=== PATIENT | female | born 1970 | race Caucasian/White ===

== ENCOUNTER 2020-04-19 10:28 | Emergency (ER) | payer OTHER ==
[~2020-04-19] VITALS: Ht 177.8 cm; Wt 72.6 kg
--- NOTE | ~2020-04-19 | EMS ---
[address] [address] EMS Patient Care Report Name: [facility]UD[facility] CHO [id number] Admission: 04/19/20 Attend Phys: Discharge: 04/19/20 Date of : 68 Report #: [id number] THIS REPORT FOR: //name// Report Transmitted: 04/19/2020 15:46 EMS Care Summary [facility] Incident 20-1056 @ 04/19/2020 09:52 Incident Location [address] [place] [address] Patient RUDY CHO Female, 49 Years 1970 Patient Address [address] [place] [address] Patient History Stroke/CVA,Alcohol Abuse, Patient Allergies Sulfa, Chief Complaint seizure Disposition Transported No Lights/Parks Dispatch Reason Stroke/CVA Transported To [place] Narrative Dispatched to a residence for 49y/o female poss. stroke. Upon arrival pt. was alert but confused. Pt. has history of stroke and alcohol abuse. 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 Pt. stated that her "eyes were twitching" and she had a headache, then doesn't remember anything until EMS arrival. Pt. family states that pt. told him "I don't feel right" then fell back onto the bed and had what appeared to be seizure activity. No trauma was suspected. Pt. was moved to the [facility] [address] EMS Patient Care Report Name: RUDY CHO Room: [facility].#: [id number] Admission: 04/19/20 Attend Phys: Discharge: 04/19/20 Date of : 68 Report #: [id number] ambulance for further assessment. CPHSS was negative. BP was high with all other VS stable. Pt. quickly became alert and oriented. Pt. stated that she has been trying to quit drinking alcohol on her own and "only had 1 fifth" yesterday with no alcohol today. Pt. stated she may be having withdrawals. Options for IV access were poor and was deferred to ED. Pt. was transported to [place] for emergency services due to it being the closest facility. Initial Vitals @10:01MI Suspected: false @10:00P: 96,R: 20,BP: 208/130,Pain: 0/10,GCS: 14,Glucose: 187,SpO2: 95,Revised Trauma: 12, @10:10P: 99,R: 20,BP: 203/132,GCS: 15,SpO2: 95,Revised Trauma: 12, @10:20P: 98,R: 20,BP: 190/121,GCS: 15,SpO2: 94,Revised Trauma: 12, Assessments @09:55MENTAL:No Abnormalities,SKIN:Jaundiced,HEENT:Head/Face: No Abnormalities,Eyes: No Abnormalities,Neck/Airway: No Abnormalities,LUNG SOUNDS:General: No Abnormalities,Left Upper: No Abnormalities,Right Upper: No Abnormalities,Left Lower: No Abnormalities,Right Lower: No Abnormalities,ABDOMEN:General: No Abnormalities,Left Upper: No Abnormalities,Right Upper: No Abnormalities,Left Lower: No Abnormalities,Right Lower: No Abnormalities,PELVIS//GI:No Abnormalities,EXTREMITIES:Right Arm: Other,Left Arm: Other,Left Leg: No Abnormalities,Right Leg: No Abnormalities,PULSE:NEURO:Other, Impression Seizures Procedures @10:0112-Lead ECGResponse: UnchangedSucceeded Timeline 09:49,Call Received 09:52,Dispatched 09:52,En Route 09:53,Initial Responder On Scene 09:53,On Scene 09:55,At Patient 10:00,BP: 208/130 M,PULSE: 96,RR: 20 R,SPO2: 95 Ox,ETCO2: ,B,PAIN: 0,GCS: 14, 10:01,12-Lead ECG,Response: UnchangedSucceeded, 10:01,BP: / M,PULSE: ,RR: R,SPO2: Ox,ETCO2: ,BG: ,PAIN: ,GCS: , 10:03,Depart Scene 10:10,BP: 203/132 M,PULSE: 99,RR: 20 R,SPO2: 95 Ox,ETCO2: ,BG: ,PAIN: ,GCS: 15, 10:20,BP: 190/121 M,PULSE: 98,RR: 20 R,SPO2: 94 Ox,ETCO2: ,BG: ,PAIN: ,GCS: 15, 10:25,[place] [address] EMS Patient Care Report Name: RUDY CHO [facility] [id number] Admission: 04/19/20 Attend Phys: Discharge: 04/19/20 Date of : 68 Report #: [id number] 10:30,Transfer Patient 11:04,Call Closed Disclaimer [email or web address] Copyright 2020 [employer] This EMS Care Summary contains data elements from the applicable legal record (which may be displayed differently). It is designed to provide pertinent information for the following purposes: continuity of care, clinical quality, and state data reporting. The complete legal record is available to ED staff and administrators of the receiving hospital in [employer] Patient Tracker. All data is provided "as is."
[~2020-04-19 10:28] MED LIST: ACETAMINOPHEN-1 EAC1 PO; AMOXICILLIN 50500 MG PO; AUGMENTIN 500-1 EACH PO; CLOTRIMAZOLE AF30 GM TP; DIFLUCAN150 M1 PO; DOXYCYCLINE 10100 MG PO; FLEXERIL PO; HYDROCODON-ACE1 EAC7 PO; HYDROCODONE-AP1 EAC6 PO; HYDROXYZINE HCL50 MG PO; LISINOPRIL10 MG PO; MEDROLDOSEPACK PO; METHADONE HCL 110 M1 GT; METHADONE HCL40 MG PO; MUCINEX TA600 MG/TA2 PO; NORCO 5-325 TA1 EAC1 PO; NORFLEX100 MG PO; OXYCODONE HCL5 M1 PO; PREDNISONE 10 M10 MG PO; ROBAXIN 750 MG750 M1 PO; SOOLANTRA30 GM TP; VENTOLIN HFA 1818 GM INH; VISTARIL 25 MG25 M1 PO; ZPAK PO
[2020-04-19 11:03] LABS: AMP/METHAMP POSITIVE (Negative); BARBITURATES POSITIVE (Negative); BENZODIAZEPINES Negative (Negative); COCAINE Negative (Negative); METHADONE Negative (Negative); OPIATES Negative (Negative); PCP Negative (Negative); THC POSITIVE (Negative)
[2020-04-19 11:24] LABS: ABSOLUTE EOSINOPHILS 0.1 thou/uL (0.0-0.7); ABSOLUTE LYMPHOCYTES 0.9 thou/uL (0.8-5.3); ABSOLUTE MONOCYTES 0.5 thou/uL (0.0-1.2); ABSOLUTE NEUTROPHILS 6.4 thou/uL (1.6-8.1); BASOPHILS 0.2 %; EOSINOPHILS 1.3 %; HEMATOCRIT 41.8 % (37.0-47.0); HEMOGLOBIN 14.1 gm/dL (12.0-15.0); LYMPHOCYTES 10.8 %; MCH 32.4 pg (26.0-34.0); MCHC 33.7 g/dL (28.0-37.0); MCV 96.1 fL (80.0-100.0); MONOCYTES 6.1 %; MPV 8.1 fl. (7.2-11.1); NUCLEATED RBCS 0 /100WBC; PLATELET COUNT* 188 thou/uL (150-400); POLYS 81.6 %; RBC 4.34 mil/uL (4.20-5.00); RDW-CV 17.5 % (10.5-14.5); WBC 7.9 thou/uL (4.0-11.0)
[2020-04-19 11:35] LABS: CALCIUM 9.5 mg/dL (8.5-10.1); CREATININE 0.7 mg/dL (0.6-1.3); POTASSIUM 3.3 mmol/L (3.5-5.1)
[2020-04-19 11:40] LABS: ALBUMIN 3.9 g/dL (3.4-5.0); TOTAL BILIRUBIN 0.8 mg/dL (<0.1-1.0); TOTAL PROTEIN 8.3 g/dL (6.4-8.2)
[2020-04-19 12:29] VITALS: BP 103/97
--- NOTE | 2020-04-19 17:07 | EKG ---
[place] [address] ELECTROCARDIOGRAM REPORT Name: RUDY CHO Room: [facility]#: [id number] Admission: 04/19/20 Attend Phys: Discharge: 04/19/20 Date of : 68 Date of Service: 04/19/20 [facility] Report #: [id number] THIS REPORT FOR: //name// [facility] ED Test Date: 2020-04-19 Test Time: 10:37:09 Pat Name: RUDY CHO Department: Room: Gender: Lacing Presser: REESE : 1970 Requested By: Cedrick Raymond Order Number: [id number] MD: Hunter Teague Measurements Intervals [place] Rate: 88 P: 55 WV: 127 QRS: 28 QRSD: 93 T: 56 QT: 392 QTc: 475 Interpretive Statements Sinus rhythm Left atrial enlargement Compared to ECG 02/24/2016 23:44:36 no change Electronically Signed On 04-19-2020 17:07:39 SANITARY AIDE by Hunter Teague [email or web address] <ELECTRONICALLY SIGNED> By: Hunter Teague MD, [facility] 04/19/20 1707 1037 1037 Hunter Teague MD, [facility] /EPI
== END 2020-04-19 12:32 | disposition left against medical advice (07) ==
LOC: M.ERS 10:28
PROVIDERS: Emergency Medicine Emergency Medical Services
DX: F10.129 Alcohol abuse with intoxication, unspecified (principal); Y90.9 Presence of alcohol in blood, level not specified; G89.29 Other chronic pain; F17.210 Nicotine dependence, cigarettes, uncomplicated; Z98.51 Tubal ligation status; Z86.14 Personal history of Methicillin resistant Staphylococcus aureus infection; Z88.6 Allergy status to analgesic agent; Z88.2 Allergy status to sulfonamides; Z88.5 Allergy status to narcotic agent; Z88.8 Allergy status to other drugs, medicaments and biological substances